=== PATIENT | female | born 1985 | race Caucasian/White ===

== ENCOUNTER → 2018-03-14 | Outpatient (CLI) | payer OTHER | LOC: M RAD 09:59 | DX: Z36.89 Encounter for other specified antenatal screening (principal); Z3A.33 33 weeks gestation of pregnancy | CPT/HCPCS: 76820 ==

== ENCOUNTER 2018-05-03 03:31 | Inpatient (IN) | payer OTHER ==
[2018-05-03] VITALS (22 sets, daily range): BP systolic 92–126; BP diastolic 55–73
[~2018-05-03] VITALS: Ht 160 cm; Wt 94.8 kg
[~2018-05-03 03:31] MED LIST: AMOX500C PO; PRENTAB55 PO
[2018-05-03] MEDS ORDERED: LACTATED RINGER'S 1000 ML IV STA (04:18)
--- NOTE | 2018-05-03 04:40 | HPEPDOC ---
Obstetrical History & Physical General Date of Admission May 03, 2018 at 04:08 History of Present Illness 32 yo at 40+6 weeks gestation by LMP of [id number] c/w 8+3 week US prese nted to L&D with regular, painful contractions. Has also had some bloody show at home. She denies any leakage of fluid or significant bleeding. She endorses movement. She had a c section with her first followed by a successful . She desires TOLAC for this delivery. 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 Past Medical History Medical History Obesity RH negative Surgical History: section, Tonsilectomy Family History Significant Family History: No pertinent family hx Social History Marital Status: Family situation: Spouse/partner home Psychosocial History: No pertinent psych hx * Smoker: non-smoker Alcohol: Denies Drugs: denies Imunizations Tdap status: current Influenza Status: declined Allergies Coded Allergies: Latex (Verified Allergy, Mild, RASH, 05/03/18) Medications Scheduled Amoxicillin (Amoxicillin) 500 Mg Cap, 500 MG PO Q8H Multivitamins/ ( 19) 1 Tab Tab, 1 TAB PO DAILY Physical Examination Physical Examination GENERAL: Alert and oriented times three. ABDOMEN: Gravid and non-tender to touch. FETUS: Is vertex (VTX) by sterile vaginal examination (SVE) EXTREMITIES: No edema. Laboratory Data [facility] Laboratory Tests 2 05/03/18 04:13: Serology Scanned Report Hepatitis B Testing Urine Culture: No Growth Pertinent Laboratoy Data Blood Type: AB- RBC Antibody Screen: Negative HIV: Negative Hepatitis B: Negative Hepatitis C: Unknown Rapid Plasma Reagin: Nonreactive Rubella: Immune Varicella: Immune Chlamydia/Gonorrhea: Negative Group B Streptococcus: Negative Quad Screen Test: Negative Cystic Fibrosis: Negative Glucose Tolerance Test: 119 Anatomy Ultrasound Placenta Location: Anterior Normal Anatomy: Yes Placenta Previa: No Steroid Therapy Steroid Therapy: No Vaginal Examination Dilation: 5 cm Effacement: 90% Station: -1 Cervical Consistency: Soft Cervical Position: Middle Presentation: Cephalic presentation Position: Vertex (occiput) Assessment Heart Rate (FHR): 140 Variability: Moderate Accelerations: Positive Decelerations: None Tocometer Contractions: Yes Frequency: regular Duration: greater than 60 seconds Strength: palpated as moderate Assessment/Plan Assessment 32 yo at 40+6 weeks gestation presented to L&D in active labor. Strongly desires TOLAC for this and she has had a successful in the past. Plan Admit for expectant management of labor. Apply IV fluids. Patient counseled regarding TOLAC vs RLTCS and all risks and benefits of each. She strongly desires TOLAC for this delivery. Continuous EFM due to TOLAC status. Anesthesia made aware TOLAC patient in house. Patient may have epidural if desired. Group B Streptococcus (GBS) negative. Anticipate . C-S as appropriate. DO RUCHI Maldonado CHRISTOPHER J. DO May 03, 2018 04:40
[2018-05-03 06:40] LABS: BASO % 0.2 % (0.0-1.0); EOS # 0.1 10^3/uL (0.0-0.50); EOS % 0.5 % (0.0-3.0); HEMATOCRIT 33.6 % (36.0-47.0); HEMOGLOBIN 11.6 g/dl (12.0-15.5); LYMPH # 2.3 10^3/uL (1.5-4.5); LYMPH % 15.9 % (24.0-44.0); MEAN CORPUSCULAR HEMOGLOBIN 29.5 pg (27.0-33.0); MEAN CORPUSCULAR HGB CONC 34.5 g/dl (32.0-36.5); MEAN CORPUSCULAR VOLUME 85.5 fl (80.0-96.0); MONO # 1.1 10^3/uL (0.0-0.8); MONO % 7.5 % (0.0-5.0); NEUTROPHILS # 10.9 10^3/uL (1.8-7.7); NEUTROPHILS % 74.7 % (36.0-66.0); PLATELET COUNT, AUTOMATED 333 10^3/uL (150-450); RED BLOOD COUNT 3.93 10^6/uL (4.00-5.40); WHITE BLOOD COUNT 14.6 10^3/uL (4.0-10.0)
--- NOTE | 2018-05-03 08:59 | IPNPDOC ---
Text Note Date of Service The patient was seen on 05/03/18. NOTE FHT Cat 1 Cx 6/90/-1/vtx well applied Plan on epidural and likely AROM Sessions VS,Jacqui, I+O VS, Jacqui, I+O Laboratory Tests 05/03/18 06:25 Red Blood Count 3.93 L, Mean Corpuscular Volume 85.5, Mean Corpuscular Hemoglobi n 29.5, Mean Corpuscular Hemoglobin Concent 34.5, Red Cell Distribution Width 13.0, Neutrophils (%) (Auto) 74.7 H, Lymphocytes (%) (Auto) 15.9 L, Monocytes (%) (Auto) 7.5 H, Eosinophils (%) (Auto) 0.5, Basophils (%) (Auto) 0.2, Neutrophils # (Auto) 10.9 H, Lymphocytes # (Auto) 2.3, Monocytes # (Auto) 1.1 H, Eosinophils # (Auto) 0.1, Basophils # (Auto) 0.0 Vital Signs Date Time Temp Pulse Resp B/P (MAP) Pulse Ox O2 Delivery O2 Flow Rate FiO2 05/03/18 07:16 98.2 75 18 111/72 (85) SESSIONS,PEYTON Wei MD May 03, 2018 08:59
[2018-05-03] MEDS ORDERED: EPIDURAL COMMENT XX SCH (09:15)
[2018-05-03] MEDS ORDERED: diphenhydrAMINE INJ 50MG/ML VIAL (J1200) IV PRN (09:15)
[2018-05-03] MEDS ORDERED: NALOXONE INJ 0.4 MG/1 ML VIAL (J2310) IV PRN (09:15)
[2018-05-03] MEDS ORDERED: REFRIGERATOR IV KEYS XX PRN (09:15)
[2018-05-03] MEDS ORDERED: FENTANYL/ROPIVACAINE/NACL BAG 100 ML EPIDURAL SCH (09:15)
[2018-05-03] MEDS ORDERED: EPIDURAL/PCA KEYS XX PRN (09:15)
[2018-05-03] MEDS ORDERED: LACTATED RINGER'S 1000 ML IV PRN (09:15)
[2018-05-03] MEDS ORDERED: ONDANSETRON 4MG/2ML VIAL (J2405) IV PRN ×2 (09:15→14:15)
[2018-05-03] MEDS ORDERED: ePHEDrine SULFATE 25 MG/5 ML(5MG/ML) SYRINGE IV PRN (09:15)
--- NOTE | 2018-05-03 10:28 | IPNPDOC ---
Text Note Date of Service The patient was seen on 05/03/18. NOTE Now s/p epidural, feeling well FHT Cat 1 Cx 6//-1/vtx well applied, no change AROM clr fluid Recheck in 2-3 hrs, sooner prn, if no change will need pitocin Sessions VS,Jacqui, I+O VS, Jacqui I+O Laboratory Tests 05/03/18 06:25 Red Blood Count 3.93 L, Mean Corpuscular Volume 85.5, Mean Corpuscular Hemoglobin 29.5, Mean Corpuscular Hemoglobin Concent 34.5, Red Cell Distribution Width 13.0, Neutrophils (%) (Auto) 74.7 H, Lymphocytes (%) (Auto) 15.9 L, Monocytes (%) (Auto) 7.5 H, Eosinophils (%) (Auto) 0.5, Basophils (%) (Auto) 0.2, Neutrophils # (Auto) 10.9 H, Lymphocytes # (Auto) 2.3, Monocytes # (Auto) 1.1 H, Eosinophils # (Auto) 0.1, Basophils # (Auto) 0.0 Vital Signs Date Time Temp Pulse Resp B/P (MAP) Pulse Ox O2 Delivery O2 Flow Rate FiO2 05/03/18 07:16 98.2 75 18 111/72 (85) SESSIONS,PEYTON Wei MD May 03, 2018 10:28
[2018-05-03] MEDS ORDERED: OXYTOCIN 30 UNITS IN 0.9% NaCl 500ML IV BAG (J2590) As Ordered ONE (13:15)
[2018-05-03] MEDS ORDERED: OXYTOCIN DRIP 30 UNITS in APPROPRIATE DILUENT 1 EA IV SCH (14:06)
[2018-05-03] MEDS ORDERED: RHOGAM 300 MCG (1500 IU) INJ (J2790) IM SCH (14:15)
[2018-05-03] MEDS ORDERED: MEASLES,MUMPS,RUBELLA VACCINE INJ (MMR-II) (90707) SC SCH (14:15)
[2018-05-03] MEDS ORDERED: DIBUCAINE 1% OINTMENT 30GM TOP PRN (14:15)
--- NOTE | 2018-05-03 14:32 | DNPDOC ---
[facility] Delivery Note Delivery Note DATE OF DELIVERY: [id number] PREDELIVERY DIAGNOSIS: 40 6/7 weeks' gestation and labor. POST DELIVERY DIAGNOSIS: Delivered. PROCEDURE: NET FRONT END DEVELOPER: Dr. Schwab ANESTHESIA: epidural ESTIMATED BLOOD LOSS: 200 mL. FINDINGS: 7 pound 11 ounce male , Score 9/9, nuchal cord times 1, tight not reduced DELIVERY SUMMARY: Called to room, great effort and progress. No delay of the vtx or ant/post shoulders. To abd, in vigorous shape. Cord C/C by FOB. Cord blood. Placenta intact. Fundal massage, firm. Pit going 999. Bilat inner labial lacs repaired with 4-0 vicryl. 1st degr per lac repaired with 3-0 vicryl. Good cosmesis/hemostasis. Sessions PEYTON CANO MD May 03, 2018 14:32
[2018-05-03] MEDS: IBUPROFEN 800 MG TAB PO PRN (17:12)
[2018-05-03] MEDS: ACETAMINOPHEN TAB 650MG DOSE (2X325MG) PO PRN (19:52)
[2018-05-03] MEDS: DOCUSATE SODIUM 100 MG CAP PO SCH (20:42)
[2018-05-04] MEDS: ACETAMINOPHEN TAB 650MG DOSE (2X325MG) PO PRN (01:12)
[2018-05-04 06:00] VITALS: BP 108/73
[2018-05-04] MEDS: DOCUSATE SODIUM 100 MG CAP PO SCH (08:48)
[2018-05-04] MEDS: IBUPROFEN 800 MG TAB PO PRN (08:48)
[2018-05-04] MEDS ORDERED: PRENATAL VITAMINS CHEWABLE TABLET PO SCH (09:00)
--- NOTE | 2018-05-04 09:19 | IPNPDOC ---
Text Note Date of Service The patient was seen on 05/04/18. NOTE PPD1 States feeling well, pain controlled with prescribed meds. Baby bonding and feeding well. No heavy VB. Lochia slowing. Ambulating and voiding well. Tolerating PO without issues. VSSAF NAD A&O RRR CTAB LE no C/C/E Ut at U-2, firm a/p: Doing well. Cont routine care. D/C today. Sessions VS,Jacqui, I+O VSJacqui I+O Vital Signs Date Time Temp Pulse Resp B/P (MAP) Pulse Ox O2 Delivery O2 Flow Rate FiO2 05/04/18 06:00 97.3 65 16 108/73 (85) 100 Room Air I&O- Last 24 Hours up to 6 AM 05/04/18 06:00 Intake Total 3912 ml Output Total 1650 ml Balance 2262 ml PEYTON YOUNG MD May 04, 2018 09:19
--- NOTE | 2018-05-04 09:29 | DS.PDOC ---
Discharge Summary General Date of Admission May 03, 2018 at 04:08 Date of Discharge [id number] Discharge Summary ADMITTING DIAGNOSES: Active labor DISCHARGE DIAGNOSES: Successful HOSPITAL COURSE: Admitted and delivery uncomplicated, . course uncomplicated. DISCHARGE MEDICATIONS: Motrin, Lanolin DISCHARGE INSTRUCTIONS: Nothing in the vagina for 6 weeks. F/U in OBGYN clinic in 6-8 weeks. Sessions Vital Signs/I&Os Vital Signs Date Time Temp Pulse Resp B/P (MAP) Pulse Ox O2 Delivery O2 Flow Rate FiO2 05/04/18 06:00 97.3 65 16 108/73 (85) 100 Room Air I&O- Last 24 Hours up to 6 AM 05/04/18 06:00 Intake Total 3912 ml Output Total 1650 ml Balance 2262 ml Discharge Medications Scheduled Multivitamins/ ( ) 1 Tab Tab, 1 TAB PO DAILY, (Reported) Allergies Coded Allergies: Latex (Verified Allergy, Mild, RASH, 05/03/18) SESSIONS,PEYTON Wei MD May 04, 2018 09:29
[2018-05-04] MEDS ORDERED: COLA100C5 PO (11:43)
[2018-05-04] MEDS ORDERED: MAPA500T2 PO (11:44)
[2018-05-04] MEDS ORDERED: IBUP-1114 PO (11:45)
== END 2018-05-04 18:15 | disposition home or self-care (01) | DRG 807 ==
LOC: M LDO 03:31 → M LDI 04:08 → M OBS 16:40
PROVIDERS: ADMIT Obstetrics & Gynecology; ATTEND Obstetrics & Gynecology
PROC: 10E0XZZ Delivery of Products of Conception, External Approach (ICD-10-PCS; principal; 2018-05-03)
PROC: 0HQ9XZZ Repair Perineum Skin, External Approach (ICD-10-PCS; 2018-05-03)
DX: O48.0 Post-term pregnancy (principal); Z37.0 Single live birth; Z3A.40 40 weeks gestation of pregnancy; O34.211 Maternal care for low transverse scar from previous cesarean delivery; E66.9 Obesity, unspecified; O99.214 Obesity complicating childbirth; O70.0 First degree perineal laceration during delivery

== ENCOUNTER → 2023-10-26 | Outpatient (REF) | payer OTHER ==
[~2023-10-26] MED LIST changes: +COLA100C5 PO; +IBUP-1114 PO; +MAPA500T2 PO
== END ==
LOC: M SFHCRHEU 13:32
PROVIDERS: ATTEND Internal Medicine
DX: R76.8 Other specified abnormal immunological findings in serum (principal); M79.10 Myalgia, unspecified site; R53.83 Other fatigue; Z53.9 Procedure and treatment not carried out, unspecified reason

== ENCOUNTER → 2023-10-29 | Outpatient (REF) | payer OTHER ==
[2023-10-29 14:30] LABS: APPEARANCE, URINE CLEAR (CLEAR); BACTERIA, URINE AUTO NEGATIVE (NEGATIVE); BILIRUBIN, URINE AUTO NEGATIVE (NEGATIVE); BLOOD, URINE BLOOD NEGATIVE (NEGATIVE); COLOR, URINE STRAW (YELLOW); GLUCOSE, URINE (UA) AUTO NEGATIVE (NEGATIVE); KETONE, URINE AUTO NEGATIVE (NEGATIVE); LEUKOCYTE ESTERASE, URINE AUTO TRACE (NEGATIVE); NITRITE, URINE AUTO NEGATIVE (NEGATIVE); PROTEIN, URINE AUTO NEGATIVE (NEGATIVE); RBC, URINE AUTO 0 /HPF (0-3); SPECIFIC GRAVITY URINE AUTO 1.004 (1.002-1.035); SQUAMOUS EPITHELIAL CELL UR AU 0 /HPF (0-6); UROBILINOGEN, URINE AUTO 0.2 mg/dL (0.0-2.0); WBC, URINE AUTO 1 /HPF (0-3)
[2023-10-29 14:33] LABS: BASO # 0.1 10^3/uL (0.0-0.2); BASO % 0.8 % (0.0-1.0); EOS # 0.2 10^3/uL (0.0-0.5); EOS % 2.7 % (0.0-3.0); HEMATOCRIT 38.7 % (36.0-47.0); HEMOGLOBIN 12.4 g/dl (12.0-15.5); LYMPH # 2.7 10^3/uL (1.5-5.0); LYMPH % 30.8 % (24.0-44.0); MEAN CORPUSCULAR HEMOGLOBIN 28.3 pg (27.0-33.0); MEAN CORPUSCULAR VOLUME 88.4 fl (80.0-96.0); MONO # 0.8 10^3/uL (0.0-0.8); MONO % 9.8 % (2.0-8.0); NEUTROPHILS # 4.8 10^3/uL (1.5-8.5); NEUTROPHILS % 55.4 % (36.0-66.0); PLATELET COUNT, AUTOMATED 336 10^3/uL (150-450); RED BLOOD COUNT 4.38 10^6/uL (4.00-5.40); WHITE BLOOD COUNT 8.6 10^3/uL (4.0-10.0)
[2023-10-29 15:00] LABS: CREATININE,RANDOM URINE 34.6 MG/DL
[2023-10-29 15:01] LABS: TOTAL PROTEIN,RANDOM URINE < 6.0 MG/DL (0.0-14.0)
[2023-10-29 15:03] LABS: MAGNESIUM LEVEL 1.8 MG/DL (1.8-2.4); PERCENT SATURATION 14.8 % (13.2-45.0); PHOSPHORUS LEVEL 3.5 MG/DL (2.5-4.9)
[2023-10-29 15:07] LABS: TOTAL 25(OH) VITAMIN D 33.6 NG/ML (20.0-100.0)
[2023-10-29 16:22] LABS: COMPLEMENT C3 107.5 MG/DL (84.0-160.0); COMPLEMENT C4 25.5 MG/DL (12-36)
== END ==
LOC: M SFHCRHEU 09:00
PROVIDERS: ATTEND Internal Medicine
DX: R76.8 Other specified abnormal immunological findings in serum (principal); M79.10 Myalgia, unspecified site; R53.83 Other fatigue

== ENCOUNTER → 2023-11-30 | Outpatient (CLI) | payer OTHER | LOC: M SLEEP HO 11:10 | PROVIDERS: ATTEND Internal Medicine | DX: R53.83 Other fatigue (principal) ==